=== PATIENT | female | born 1955 | race Caucasian/White ===

== ENCOUNTER 2019-03-06 19:41 | Emergency (ER) | payer OTHER ==
[~2019-03-06] VITALS: Ht 157.5 cm; Wt 73.0 kg
[~2019-03-06 19:41] MED LIST: METF100028 PO
[2019-03-06 19:50] VITALS: BP 121/61
--- NOTE | 2019-03-06 22:22 | NUR ---
PT VITAL RECHECKED, WITH IN NORMAL LIMITS, PT TO LOBBY.
--- NOTE | 2019-03-07 00:28 | NUR ---
PT AMBULATED TO BED 11.
--- NOTE | 2019-03-07 00:35 | NUR ---
64 Y/O FEMALE PT C/O RT EAR RINGING/BUZZING FOR 2 WEEKS BUT TODAY HAS BEEN NONSTOP. PT DENIES TRAUMA, SWIMMING, USE OF QTIPS. PT STATES SHE NOTED SOME BLOOD EARLIER. PT C/O DIZZINESS WELL AND STATED, " I FEEL THAT IT AFFECTS MY BALANCE THAT I ALMOST FELL BECAUSE OF IT.". 10/10 SHARP PAIN NOTED WHEN RIGHT TRAGUS WAS PALPATED. RIGHT AURICLE INTACT. ERMD MADE AWARE OF STATUS. SIDE RAILSX2. WILL CONTINUE TO MONITOR. PMH HTN, DM, ANXIETY RX: GLIPIZIDE, LISINOPRIL, GABAPENTIN
--- NOTE | 2019-03-07 02:05 | NUR ---
Patient is in no distress and is quietly sitting in bed. Will continue to monitor.
--- NOTE | 2019-03-07 04:32 | NUR ---
ERMD AT BEDSIDE.
--- NOTE | 2019-03-07 05:25 | NUR ---
ERMD AT BEDSIDE EVALUATING PATIENT.
[2019-03-07 05:35] VITALS: BP 111/58
--- NOTE | 2019-03-07 05:35 | NUR ---
Patient discharged with v/s stable. Written and verbal after care instructions given and explained. Patient alert, oriented and verbalized understanding of instructions. Ambulatory with steady gait. All questions addressed prior to discharge. ID band removed. Patient advised to follow up with PMD. Rx of CIPRODEX given. Patient educated on indication of medication including possible reaction and side effects. Opportunity to ask questions provided and answered.
== END 2019-03-07 05:35 | disposition home or self-care (01) ==
LOC: MED 19:41
DX: T16.1XXA Foreign body in right ear, initial encounter (principal); H60.91 Unspecified otitis externa, right ear; E11.9 Type 2 diabetes mellitus without complications; I10 Essential (primary) hypertension; Z79.84 Long term (current) use of oral hypoglycemic drugs; X58.XXXA Exposure to other specified factors, initial encounter; Y93.89 Activity, other specified; Y92.89 Other specified places as the place of occurrence of the external cause; Y99.8 Other external cause status
CPT/HCPCS: 69200; 99284

== ENCOUNTER 2021-07-26 18:24 | Emergency (ER) | payer OTHER ==
[~2021-07-26] VITALS: Ht 160 cm; Wt 78.9 kg
[2021-07-26 18:30] VITALS: BP 174/78
[2021-07-26] MEDS ORDERED: ACETAMINOPHEN EXTRA STRENGTH 500 MG TAB PO ONE (18:45)
[2021-07-26 19:58] LABS: BASOPHILS % (AUTO) 0.9 % (0.0-2.0); EOSINOPHILS # (AUTO) 0.2 K/uL (0-0.4); EOSINOPHILS % (AUTO) 2.8 % (0.0-4.0); HEMATOCRIT 38.6 % (36-48); HEMOGLOBIN 13.3 g/dL (12.0-16.0); LYMPHOCYTES # (AUTO) 2.1 K/uL (2.5-16.5); LYMPHOCYTES % (AUTO) 38.2 % (20.5-51.1); MEAN CORPUSCULAR HEMOGLOBIN 31 pg (27-31); MEAN CORPUSCULAR HGB CONC 35 g/dL (33-37); MEAN CORPUSCULAR VOLUME 89.7 fL (80-94); MONOCYTES # (AUTO) 0.4 K/uL (0.8-1.0); MONOCYTES % (AUTO) 6.7 % (1.7-9.3); NEUTROPHILS # (AUTO) 2.8 K/uL (1.8-7.7); NEUTROPHILS % (AUTO) 51.4 % (42.2-75.2); PLATELET COUNT (AUTO) 213 K/uL (140-450); RED CELL DISTRIBUTION WIDTH 14.8 % (11.6-13.7); WHITE BLOOD COUNT (AUTO) 5.4 K/uL (4.8-10.8)
[2021-07-26] MEDS ORDERED: NAPR-54 PO (20:09)
[2021-07-26 20:16] LABS: ALBUMIN 3.9 g/dL (3.4-5.0); ANION GAP 10.9 (8-16); CREATININE 0.6 mg/dL (0.6-1.3); POTASSIUM 3.9 mmol/L (3.5-5.1); TOTAL BILIRUBIN 0.3 mg/dL (0.0-1.0)
[2021-07-26] MEDS ORDERED: ACETAMINOPHEN EXTRA STRENGTH 500 MG TAB ONE (21:11)
[2021-07-26 21:21] VITALS: BP 165/72
--- NOTE | 2021-07-26 21:21 | NUR ---
Patient discharged with v/s stable. Written and verbal after care instructions given and explained. Patient alert, oriented and verbalized understanding of instructions. Ambulatory with steady gait. All questions addressed prior to discharge. ID band removed. Patient advised to follow up with PMD. Rx of NAPROXEN given. Opportunity to ask questions provided and answered.
== END 2021-07-26 21:21 | disposition home or self-care (01) ==
LOC: MED 18:24
DX: R51.9 Headache, unspecified (principal); R53.83 Other fatigue; E11.9 Type 2 diabetes mellitus without complications; I10 Essential (primary) hypertension; Z79.84 Long term (current) use of oral hypoglycemic drugs; Z79.899 Other long term (current) drug therapy
CPT/HCPCS: 36415; 70450; 80053; 85025; 99284